=== PATIENT | female | born 1950 | race Two or more races ===

== ENCOUNTER 2024-09-29 11:11 | Outpatient (CLI) | payer OTHER | END 2024-09-29 11:17 | disposition home or self-care (01) | LOC: RAD 11:11 → LAB 11:11 → RAD 11:17 | PROVIDERS: ATTEND Ophthalmology | DX: Z01.811 Encounter for preprocedural respiratory examination (principal); I10 Essential (primary) hypertension ==

== ENCOUNTER → 2025-06-27 08:10 | Outpatient (CLI) | payer OTHER ==
[2025-06-27 10:37] LABS: ALT/SGPT 36.0 U/L (12-78); AST/SGOT 35.0 U/L (15-37); BILIRUBIN TOTAL 0.78 mg/dL (0.3-1.2); BUN CREA RATIO 28.0 (7.0-25.0); CREATININE SERUM 0.82 mg/dL (0.55-1.02); GFR 67.78; GLOBULINA 3.1 G/DL (2.4-3.5); GLUCOSE FASTING 174.0 mg/dL (65-100); OSMOLALITY SERUM 287.0 MOSM/KG (275-295)
[2025-06-27 10:38] LABS: BASO % 0.7 % (0.1-1.2); EOS # 0.27 (0.04-0.54); EOS % 3.2 % (0.7-7.0); INR 1.0; LYMPH # 1.58 (1.18-3.74); LYMPH % 18.7 % (19.3-53.1); MEAN PLATELET VOLUME 10.60 fl (9.4-12.4); MONO # 0.86 (0.24-0.82); MONO % 10.2 % (4.7-12.5); NEUT # 5.67 (1.56-6.13); NEUT % 67.0 % (34.0-71.1); RED CELL DISTRIBUTION WIDTH 13.1 % (11.6-14.4)
== END | disposition home or self-care (01) ==
LOC: LAB 08:10
PROVIDERS: ATTEND Ophthalmology
DX: D68.8 Other specified coagulation defects (principal); I10 Essential (primary) hypertension; H25.013 Cortical age-related cataract, bilateral